=== PATIENT | male | born 1965 | race Caucasian/White ===

== ENCOUNTER 2016-11-19 19:29 | Emergency (ER) | payer OTHER ==
[~2016-11-19] VITALS: Ht 177.8 cm; Wt 83.5 kg
[~2016-11-19 19:29] MED LIST: CEPH500C3 PO; PERC5TAB12 PO
[2016-11-19 19:31] VITALS: BP 139/100; PULSE 108; RESP 18; TEMP 98.2; O2SAT 99
[2016-11-19] MEDS ORDERED: PRED1 PO (19:47)
[2016-11-19] MEDS ORDERED: FLUT1SPR5 EACH NARE (19:47)
[2016-11-19] MEDS ORDERED: VENTAER INH (19:47)
[2016-11-19] MEDS ORDERED: AMOXICILLIN/CLAVULANATE K 875 MG TAB PO ONE (20:15)
[2016-11-19] MEDS ORDERED: BUPIVACAINE HCL PF 0.5% 10 ML VIAL INFIL ONE (20:15)
[2016-11-19] MEDS ORDERED: LIDOCAINE HCL 1% 50 ML VIAL INFIL ONE (20:15)
--- NOTE | 2016-11-19 20:18 | PD ---
HPI Chief Complaint: Bite or Sting Time Seen by Provider: 20:18 Travel History International Travel<30 days: No Contact w/Intl Traveler<30days: No Traveled to known affect area: No History of Present Illness HPI 51-year-old male presents to the emergency department for evaluation of dog bite to left thumb. The patient states that he was walking his dog when a stray dog ran up to them. States that he put his left hand down to try to break them up and his dog accidentally bit him on the left thumb. States that his dog is up-to-date on all immunizations and does not have a history of rabies. The patient states that he has a laceration to his left hand thumb and has pain at the site. Pain is aggravated with movement. Denies any alleviating factors. Denies any numbness or tingling, weakness, fever, chills, nausea, vomiting. Patient states he is up-to-date on his tetanus vaccination. No other complaints. PFSH Past Medical History Asthma: Yes Cancer: Yes (BASAL CELL CA) Tetanus Vaccination: < 5 Years Influenza Vaccination: Yes Social History Alcohol Use: Yes (SOCIAL) Tobacco Use: No Substance Use: No Allergies-Medications (Allergen,Severity, Reaction): Coded Allergies: No Known Allergies (Verified , 11/19/16) Reported Meds & Prescriptions Reported Meds & Active Scripts Active Lortab (Hydrocodone-Acetaminophen) 5-325 Mg Tab 1 Tab PO Q6H PRN Augmentin (Amoxicillin-Clavulanate) 875-125 mg Tab 875 Mg PO BID 10 Days not for use in CrCl <30 ml/min. Reported Ventolin Hfa 18 GM Inh (Albuterol Sulfate) 90 Mcg/Act Aer 1 Puff INH Q4H PRN Prednisone 1 Mg Tab 1 Mg PO DIRECTED Flonase Nasal [place] (Fluticasone Nasal [place]) 50 Mcg/Act [place] 100 Mcg EACH NARE BID Review of Systems Except as stated in HPI: all other systems reviewed are Neg Physical Exam Narrative GENERAL: Well-nourished and well-developed pleasant male patient in no acute distress who is nontoxic appearing. SKIN: Warm and dry. HEAD: Normocephalic and atraumatic. EYES: No injection, drainage, or hyphema noted. PERRLA. EOMI. ENT: No nasal drainage noted. Oropharynx is clear. NECK: Supple and the trachea is midline. CARDIOVASCULAR: Regular rate and rhythm. RESPIRATORY: Breath sounds are equal bilaterally with no accessory muscle use, wheezing, rhonchi, or crackles. EXTREMITY: Left hand thumb semicircular laceration to the volar aspect between the MCP and PIP. Full range of motion in all joints. No joint swelling/injury. Normal opposition of thumb. Distal extremity neurovascularly intact with intact two point discrimination. NEUROLOGICAL: Awake, alert, and oriented. Normal speech and gait. Cranial nerves are grossly intact. Data Data Last Documented VS Vital Signs Date Time Temp Pulse Resp B/P Pulse Ox O2 Delivery O2 Flow Rate FiO2 11/19/16 19:31 98.2 108 18 139/100 99 Orders Finger ([id number]) (11/19/16 20:03) Lidocaine 1% Inj (50 Ml) (Xylocaine 1% I (11/19/16 20:15) Bupivacaine Pf 0.5% Inj (Marcaine Pf 0.5 (11/19/16 20:15) Amoxicil-Clavulanate (Augmentin) (11/19/16 20:15) MDM Medical Decision Making Medical Screen Exam Complete: Yes Emergency Medical Condition: Yes Differential Diagnosis Laceration versus abrasion versus avulsion Narrative Course 51-year-old male presents to the emergency department for evaluation of left hand thumb dog bite wound. Patient is afebrile, vital signs are stable. The patient's left hand and fingers are all neurovascularly intact. This is an open laceration and will require some loose sutures to close the wound. Digital block is performed and copious irrigation is done to clean the wound. Please see procedure narrative for further details. X-ray of the left thumb is negative for any acute abnormalities. Patient will be discharged with Augmentin. Discussed proper wound care techniques and he is instructed to return to the emergency department in 2 days for wound recheck. Discussed signs and symptoms of infection. I discussed the case with my attending physician Dr. Li who is aware of the patients history, physical examination findings, and treatment plan. Procedures Procedure Narrative LACERATION LOCATION: Left hand thumb, volar aspect LENGTH: 2 cm NUMBER OF STITCHES/TAHIRA: 2 sutures REPAIR: The area of the laceration was prepped with Betadine and sterilely draped. The finger was digitally blocked using 1% lidocaine and 0.5 percent bupivacaine. The wound was copiously irrigated and explored without evidence of foreign body, tendon injury or neurovascular injury. The wound was loosely approximated using 4. 0 Ethilon. This was a single layer repair. Antibiotic ointment and a sterile dressing was applied. The patient was advised to keep the dressing clean and dry. Patient tolerated the procedure well. Diagnosis Primary Impression: Dog bite of finger Qualified Code: S61.259A - Dog bite of finger, initial encounter Additional Impression: Finger laceration Qualified Code: S61.219A - Finger laceration, initial encounter Referrals: Primary Care Physician Patient Instructions: Animal Bite (ED), Finger Laceration (ED), General Instructions Additional Instructions: Cleanse gently with soap and water. Apply topical antibiotic ointment twice daily. Return in 2 days for wound recheck. Have sutures removed in 10 days. Take medications as prescribed with food and a full glass of water. Follow-up with your Primary Care Physician. Return to the ED for any acute worsening of symptoms. Med/Other Pt SpecificInfo: Prescription(s) given Scripts Hydrocodone-Acetaminophen (Lortab)5-325 Mg Tab1 Tab PO Q6H PRN (PAIN) #12 TAB Ref 0 Prov:Domenica Li MD 11/19/16 Amoxicillin-Clavulanate (Augmentin)875-125 mg Leb009 Mg PO BID 10 Days Ref 0 not for use in CrCl <30 ml/min. Prov:Domenica Li MD 11/19/16 Disposition: 01 DISCHARGE HOME Condition: Stable Claudette Burgos Nov 19, 2016 20:18
[2016-11-19] MEDS ORDERED: HYDR-3533 PO (21:17)
[2016-11-19] MEDS ORDERED: AUGM875T PO (21:17)
--- NOTE | 2016-11-19 21:24 | RADHPO ---
EXAM DATE/TIME: 11/19/2016 20:30 [facility] COMPARISON: FINGER LEFT 1ST DIGIT ([id number]), January 02, 2016, 20:58. INDICATIONS : Left hand, first digit pain with laceration post dog bite. MEDICAL HISTORY : None. SURGICAL HISTORY : None. ENCOUNTER: Initial ACUITY: 1 day PAIN SCORE: 7/10 LOCATION: Left upper extremity FINDINGS: There appears to be soft tissue injury at the thumb. No bony abnormality is seen. No foreign body is seen. CONCLUSION: Soft tissue swelling and irregularity is seen at the soft tissues of the thumb likely from soft tissue injury. No bony abnormality is seen. Carlos Power MD on November 19, 2016 at 21:18 Board Certified Radiologist. This report was verified electronically.
== END 2016-11-19 21:25 | disposition home or self-care (01) ==
LOC: PHEFT 19:29
DX: S61.052A Open bite of left thumb without damage to nail, initial encounter (principal); J45.909 Unspecified asthma, uncomplicated; W54.0XXA Bitten by dog, initial encounter; Y93.K1 Activity, walking an animal; Y92.9 Unspecified place or not applicable; Y99.8 Other external cause status
CPT/HCPCS: 12001; 73140

== ENCOUNTER → 2017-01-11 | Outpatient (CLI) | payer OTHER ==
[~2017-01-11] MED LIST changes: +AUGM875T PO; -CEPH500C3 PO; +FLUT1SPR5 EACH NARE; +HYDR-3533 PO; -PERC5TAB12 PO; +PRED1 PO; +VENTAER INH
[2017-01-11 09:56] LABS: BLOOD GAS BASE EXCESS -0.2 mmol/L (-2-2); BLOOD GAS CARBOXYHEMOGLOBIN 1.5 % (0-4); BLOOD GAS HCO3 24 mmol/L (22-26); BLOOD GAS METHEMOGLOBIN 1.2 % (0-2); BLOOD GAS O2 HGB SATURATION 96 % (90-100); BLOOD GAS OXYGEN CONTENT 22.1 Vol % (12.0-20.0); BLOOD GAS PCO2 35 mmHg (38-42); BLOOD GAS PO2 114 mmHg (61-120); BLOOD GAS TOTAL HGB 16.3 G/DL (12.0-16.0); CRITICAL VALUE NO; DRAW SITE RT RADIAL; FIO2 21 %; NUMBER OF ARTERIAL PUNCTURES 1; STAT NO; TEMP CORR TO 98.6; ULNAR PULSE PRESENT
--- NOTE | 2017-01-12 09:40 | RSPPFT ---
DATE OF PROCEDURE: 01/11/17 COMMENTS: Spirometry shows FVC of 3.9 predicted 4.9, FEV1 of 3.2 predicted 3.6, FEV1/FVC ratio 81% predicted 74%. Lung volumes are basically within the predicted range as well as the DLCO. The flow volume loop is satisfactory. There is no evidence of de-saturation IMPRESSION: On the basis of the above, patient flow volume loop is satisfactory and there is no evidence of de-saturation.
== END ==
LOC: HRSP 08:42
PROVIDERS: ATTEND Internal Medicine Pulmonary Disease
DX: J45.909 Unspecified asthma, uncomplicated (principal)
CPT/HCPCS: 36600; 82805; 94060; 94620; 94726; 94729